=== PATIENT | male | born 2000 | race Caucasian/White ===

== ENCOUNTER 2024-11-10 11:31 | Emergency (ER) | payer OTHER | END 2024-11-10 13:15 | LOC: FB.ED 11:31 | DX: S40.012A Contusion of left shoulder, initial encounter (principal); Z91.013 Allergy to seafood; Z91.040 Latex allergy status; Z88.0 Allergy status to penicillin; F17.210 Nicotine dependence, cigarettes, uncomplicated; W06.XXXA Fall from bed, initial encounter; Y93.89 Activity, other specified | CPT/HCPCS: 73030-LT; 99283 ==